=== PATIENT | male | born 2000 | race Caucasian/White ===

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

== ENCOUNTER 2019-08-29 16:33 | Emergency (ER) | payer OTHER ==
--- NOTE | 2019-08-29 16:57 | EDM.PDOC ---
ED HPI GENERAL MEDICAL PROBLEM - General Chief Complaint: Gastrointestinal Problem Stated Complaint: LT SIDE GROIN AREA Time Seen by Provider: 08/29/19 16:40 Source of Information: Reports: Patient, Old Records, RN History Limitations: Reports: No Limitations - History of Present Illness INITIAL COMMENTS - FREE TEXT/NARRATIVE: 19 yo male presents with L groin pain that began last evening after shoveling. Pain is not better today so comes in for eval. No fever. No change in bowel or bladder fxn. No nausea or vomiting. No hx of any abdominal surgeries. 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 (see below) (none) - Related Data Allergies Allergy/AdvReac Type Severity Reaction Status Date / Time No Known Allergies Allergy Verified 11/12/17 19:07 Home Meds: Home Meds NK [No Known Home Meds] 04/12/17 [History] Past Medical History Respiratory History: Reports: Pneumonia, Recurrent Musculoskeletal History: Reports: Fracture (nose, feet, ankle) Neurological History: Reports: Concussion - Past Surgical History HEENT Surgical History: Reports: Tonsillectomy ED ROS GENERAL - Review of Systems Review Of Systems: See Below Constitutional: Reports: No Symptoms HEENT: Reports: No Symptoms Respiratory: Reports: No Symptoms Cardiovascular: Reports: No Symptoms Endocrine: Reports: No Symptoms GI/Abdominal: Reports: No Symptoms : Reports: No Symptoms Musculoskeletal: Reports: Other (pain in the left groin) Skin: Reports: No Symptoms Neurological: Reports: No Symptoms ED EXAM, GI/ABD - Physical Exam Exam: See Below Exam Limited By: No Limitations General Appearance: Alert, WD/WN, No Apparent Distress Respiratory/Chest: No Respiratory Distress, No Accessory Muscle Use Cardiovascular: Regular Rate, Rhythm GI/Abdominal Exam: Normal Bowel Sounds, Soft, No Distention, Tender (L groin without any palpable bulges). No: Distended, Guarding, Rigid, Rebound, Hernia (none appreciated) (Male) Exam: Normal Inspection, Circumcised. No: No Hernia, Scrotum Tenderness (L), Scrotum Tenderness (R), Suprapubic Fullness, Testicular Tenderness (L), Testicular Tenderness (R) Extremities: Normal Inspection Neurological: Alert, Oriented, CN II-XII Intact, Normal Cognition, No Motor/Sensory Deficits Psychiatric: Normal Affect, Normal Mood Skin Exam: Warm, Dry, Intact, Normal Color, No Rash Departure - Departure Time of Disposition: 17:00 Disposition: Home, Self-Care 01 Condition: Good Clinical Impression: Strain of groin Qualifiers: Encounter type: initial encounter Laterality: left Qualified Code(s): S76.212A - Strain of adductor muscle, fascia and tendon of left thigh, initial encounter - Discharge Information *PRESCRIPTION DRUG MONITORING PROGRAM REVIEWED*: No *COPY OF PRESCRIPTION DRUG MONITORING REPORT IN PATIENT JINNY: No Instructions: Muscle Strain Referrals: Teri Mathias NP [Primary Care Provider] - Forms: ED Department Discharge Additional Instructions: Acetaminophen and/or ibuprofen as needed for pain relief. Rest. No lifting. Recheck with your doctor by the end of the week. Return if recurrent vomiting develops.
== END 2019-08-29 17:10 | disposition home or self-care (01) ==
LOC: FB.ED 16:33
DX: S39.011A Strain of muscle, fascia and tendon of abdomen, initial encounter (principal); W19.XXXA Unspecified fall, initial encounter; Y93.H1 Activity, digging, shoveling and raking
CPT/HCPCS: 99000; 99283

== ENCOUNTER 2019-08-30 22:13 | Emergency (ER) | payer OTHER ==
[2019-08-30] MEDS ORDERED: Cephalexin 500 MG Cap PO STA (22:38)
--- NOTE | 2019-08-30 22:38 | EDM.PDOC ---
ED HPI GENERAL MEDICAL PROBLEM - General Chief Complaint: General Stated Complaint: INJURY Time Seen by Provider: 08/30/19 22:20 Source of Information: Reports: Patient History Limitations: Reports: No Limitations - History of Present Illness INITIAL COMMENTS - FREE TEXT/NARRATIVE: Patient presented to the ED because of redness,pain,swelling and pus discharge over the left groin. Alphonso noticed it tonight. There is no associated fever,chills. He was seen in the ED yesterday and diagnosed with sprain. - Related Data Allergies Allergy/AdvReac Type Severity Reaction Status Date / Time No Known Allergies Allergy Verified 08/30/19 22:27 Home Meds: Home Meds cephALEXin [Keflex] 500 mg PO Q8H #30 cap 08/30/19 [Rx] Past Medical History Respiratory History: Reports: Pneumonia, Recurrent Musculoskeletal History: Reports: Fracture (nose, feet, ankle) Neurological History: Reports: Concussion - Past Surgical History HEENT Surgical History: Reports: Tonsillectomy ED ROS GENERAL - Review of Systems Review Of Systems: See Below Constitutional: Reports: No Symptoms HEENT: Reports: No Symptoms Respiratory: Reports: No Symptoms Cardiovascular: Reports: No Symptoms Endocrine: Reports: No Symptoms GI/Abdominal: Reports: No Symptoms : Reports: No Symptoms Musculoskeletal: Reports: No Symptoms Skin: Reports: Erythema Neurological: Reports: No Symptoms ED EXAM, GENERAL - Physical Exam Exam: See Below Exam Limited By: No Limitations General Appearance: Alert, No Apparent Distress Ears: Normal External Exam, Normal Canal Nose: Normal Inspection, Normal Mucosa, No Blood Throat/Mouth: Normal Inspection, Normal Lips, Normal Teeth, Normal Gums Head: Atraumatic, Normocephalic Neck: Normal Inspection, Supple, Non-Tender, Full Range of Motion Respiratory/Chest: No Respiratory Distress, Lungs Clear, Normal Breath Sounds Cardiovascular: Normal Peripheral Pulses, Regular Rate, Rhythm, No Edema GI/Abdominal: Normal Bowel Sounds, Soft, Non-Tender Back Exam: Normal Inspection, Full Range of Motion Extremities: Normal Inspection, Normal Range of Motion Skin Exam: Warm, Erythema Course - Vital Signs Text/Narrative:: Keflex 500 mg po x1 Last Recorded V/S: Last Vital Signs Temp 37.1 C 08/30/19 22:15 Pulse 91 08/30/19 22:15 Resp 18 08/30/19 22:15 BP 154/86 H 08/30/19 22:15 Pulse Ox 97 08/30/19 22:15 - Orders/Labs/Meds Meds: Medications Discontinued Medications Generic Name Dose Route Start Last Admin Trade Name Shalini PRN Reason Stop Dose Admin Cephalexin 500 mg 08/30/19 22:38 Keflex PO 08/30/19 22:39 NOW STA Departure - Departure Time of Disposition: 22:45 Disposition: Home, Self-Care 01 Condition: Good Clinical Impression: Cellulitis - Discharge Information Prescriptions: cephALEXin [Keflex] 500 mg PO Q8H #30 cap Instructions: Skin Abscess, Cellulitis, Adult Referrals: Teri Mathias NP [Primary Care Provider] - Forms: ED Department Discharge Additional Instructions: Please read discharge instructions on cellulitis and abscess Take keflex 500 mg 3 times daily for 10 days Take ibuprofen 800 mg with tylenol 1000 mg every 8 hours as needed for pain Follow up as needed Sepsis Event Note (ED) - Focused Exam Vital Signs: Vital Signs Temp Pulse Resp BP Pulse Ox 08/30/19 22:15 37.1 C 91 18 154/86 H 97
== END 2019-08-30 22:45 | disposition home or self-care (01) ==
LOC: FB.ED 22:13
DX: L03.314 Cellulitis of groin (principal)
CPT/HCPCS: 99283; A9270

== ENCOUNTER 2020-03-26 16:42 | Emergency (ER) | payer SELFPAY ==
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
== END 2020-03-26 17:30 | disposition home or self-care (01) ==
LOC: FB.ED 16:42
DX: T23.261A Burn of second degree of back of right hand, initial encounter (principal); I10 Essential (primary) hypertension; X12.XXXA Contact with other hot fluids, initial encounter; Y99.0 Civilian activity done for income or pay
CPT/HCPCS: 99282; 99283